=== PATIENT | male | born 1985 | race Asian ===

== ENCOUNTER → 2024-05-31 08:49 | Outpatient (REF) | payer BC, SELFPAY ==
[2024-05-31 10:54] LABS: Glycohemoglobin (HgbA1c) 6.1 % (4.0-5.6)
[2024-05-31 11:19] LABS: ALT (SGPT) 30 U/L (0-50); AST (SGOT) 22 U/L (17-59); Albumin 4.4 g/dl (3.5-5.0); Alkaline Phosphatase 39 U/L (38-126); Blood Urea Nitrogen 17 mg/dl (9-20); Calcium 9.8 mg/dl (8.4-10.2); Carbon Dioxide 27 mmol/L (22-30); Chloride 106 mmol/L (98-107); Glucose 105 mg/dl (70-99); HDL Cholesterol 43 mg/dl; LDL Cholesterol, Calculated 187 mg/dl; Potassium 5.1 mmol/L (3.5-5.1); Sodium 142 mmol/L (135-145); Total Bilirubin 0.9 mg/dl (0.2-1.3); Total Cholesterol 254 mg/dl (50-199); Total Protein 7.1 g/dl (6.3-8.2); Triglyceride 122 mg/dl (10-149); Very Low Density Lipoprotein 24 mg/dl (0-30); eGFR > 60.00
[2024-05-31 11:57] LABS: TSH Reflex To Free T4 1.55 uIU/ml (0.47-4.68)
[2024-06-01 05:46] LABS: Hepatitis C Antibody Negative (Negative)
== END ==
LOC: REG 08:49
PROVIDERS: ATTENDING PHYSICIAN Student in an Organized Health Care Education/Training Program
DX: Z11.59 Encounter for screening for other viral diseases (principal); R73.03 Prediabetes; E78.00 Pure hypercholesterolemia, unspecified; G47.33 Obstructive sleep apnea (adult) (pediatric); E66.01 Morbid (severe) obesity due to excess calories
CPT/HCPCS: 36415; 80053; 80061; 83036; 84443; 86803